=== PATIENT | female | born 1950 ===

== ENCOUNTER 2018-12-04 08:00 | Day surgery (SDC) | payer OTHER ==
[~2018-12-04 08:00] MED LIST: AROMASIN25 MG PO; OMEPRAZO PO; ZANTAC PO; [UNRECOGNIZED DRUG - OTHER]
[2018-12-04] MEDS ORDERED: PERCOCET 5-3251 EACH PO (10:09)
== END 2018-12-04 12:37 | disposition home or self-care (01) ==
LOC: CIR.AMB 08:00 → EDBD 11:15 → CIR.AMB 11:15
DX: C50.212 Malignant neoplasm of upper-inner quadrant of left female breast (principal)
CPT/HCPCS: 36561; C1751